=== PATIENT | male | born 2000 | race Caucasian/White ===

== ENCOUNTER 2025-09-04 04:12 | Inpatient (IN) | payer MEDICAID, SELFPAY ==
[2025-09-04] VITALS (20 sets, daily range): BP systolic 119–171; BP diastolic 68–101; PULSE 92–132; RESP 12–32; TEMP 36.4–37.7; O2SAT 96–100; BMI 22.4
--- NOTE | ~2025-09-04 | XR_ITS ---
Examination: XR chest 1V portable Clinical History: dyspnea Comparison: None Technique: Portable AP Findings: Heart size normal. Lungs clear. No acute bony abnormality. IMPRESSION: 1. No acute cardiopulmonary findings given portable technique. Reviewed, dictated and finalized at location R. MAKING MACHINE TENDER
[2025-09-04 04:43] LABS: Hematocrit 50.6 % (42.0-52.0); Hemoglobin 16.8 g/dL (14.0-18.0); Immature Granulocyte Percent A 5.0 % (0-0.5); Lymphocytes Absolute Auto 1.08 K/mm3 (0.9-3.2); Mean Corpuscular HGB Conc 33.2 g/dl (32-36); Mean Corpuscular Hemoglobin 32.1 pg (26-34); Mean Corpuscular Volume 96.6 fl (80-100); Nucleated Red Blood Cells Absolute Auto 0.000 K/mm3 (0.0-0.012); Nucleated Red Blood Cells Perc 0.0 % (0.0-0.2); Platelet Count Result 261 k/mm3 (150-375); Red Blood Count 5.24 M/mm3 (4.6-6.20); White Blood Count 18.5 K/mm3 (4.5-10.0)
[2025-09-04 05:01] LABS: Alanine Aminotransferase 42 U/L (6-50); Albumin Level 5.5 g/dL (3.5-5.1); Alkaline Phosphatase 107 U/L (38-126); Aspartate Amino Transferase 25 U/L (17-59); Bilirubin,Total 0.7 mg/dL (0.2-1.3); Blood Urea Nitrogen 6 mg/dL (9-20); Calcium 9.2 mg/dL (8.4-10.2); Carbon Dioxide < 5 mmol/L (22-30); Chloride 103 mmol/L (98-107); Estimated CRCL calculation 122 ml/min; Estimated Glomerular Filt Rate > 60; Glucose 366 mg/dL (65-110); Magnesium 1.9 mg/dL (1.6-2.3); Potassium 5.1 mmol/L (3.4-5.0); Sodium 136 mmol/L (137-145); Total Protein 9.1 g/dL (6.3-8.2)
--- NOTE | 2025-09-04 05:09 | ED.GENADULT ---
HPI - General Adult General Chief complaint: Unspecified Stated complaint: DKA Time Seen by Provider: 09/04/25 05:03 Source: patient and family Mode of arrival: ambulatory Limitations: no limitations History of Present Illness HPI narrative: Patient is a 25-year-old male presents to the emergency department accompanied by mother complaining of DKA. Patient has been in DKA multiple times in the past and feels occasion and can. Patient has a glucometer and his blood sugars have been in the 3-400s. Patient has had nausea and vomiting today. He has been short of breath. Patient notes he was seeing general production manager in the left and only takes for his insulin regimen is currently 40 units of long-acting and does not take any short-acting insulin. Patient went out drinking last night and thought maybe he was just tongue over the then realized that this is probably more DKA at this point. Patient denies any known fevers. Related Data Allergies Allergy/AdvReac Type Severity Reaction Status Date / Time black olives AdvReac Mild Diarrhea Uncoded 09/04/25 04:20 Review of Systems Review of Systems: A 10 system review of systems was completed on the patient and is negative except for what is stated in the HPI. Nursing and ancillary documentation was reviewed. Exam Narrative: CONST: Kussmaul breathing HENMT: Head is normocephalic and atraumatic. Dry mucous membranes. No posterior oropharynx erythema. EYES: No scleral icterus. No conjunctival injection or pallor. PERRL. NECK: No meningeal signs. RESP: Conversational dyspnea. Clear to auscultation bilaterally. Tachypneic. CARDIO: Tachycardic rate. Regular rhythm. 2+ DP and radial pulses bilaterally. GI: Nondistended. No tenderness to palpation. Soft. : No CVA tenderness to palpation. SKIN: No rashes or lesions noted on exposed skin. NEURO: Oriented x3. Moves all extremities. EXTREM/MSK/BACK: No pedal edema. PSYCH: Normal affect. Course Vital Signs Vital signs: Vital Signs Temperature 99.9 F H 09/04/25 04:16 Pulse Rate 132 H 09/04/25 04:16 Respiratory Rate 32 H 09/04/25 04:16 Blood Pressure 171/101 H 09/04/25 04:16 Pulse Oximetry 100 09/04/25 04:16 Temperature 99.9 F H 09/04/25 04:16 Pulse Rate 132 H 09/04/25 04:16 Respiratory Rate 32 H 09/04/25 04:16 Blood Pressure 171/101 H 09/04/25 04:16 Pulse Oximetry 100 09/04/25 04:16 [employer] Narrative Medical decision making narrative: Patient presents with the above complaint. Initial vitals are remarkable for tachycardia, tachypnea. Physical examination as noted above. Plan discussed: Laboratory analysis, EKG, chest x-ray, IV fluids, insulin drip, DKA protocol, continuous cardiac monitoring, continuous pulse oximetry. I spoke with the grassland conservationist on-call who will see the patient on consultation, agrees with plan of care. I spoke with the hospitalist on-call who has accepted the patient for admission. Differential Diagnosis Differential Diagnosis: DKA, electrolyte derangement, metabolic derangement, dehydration, sepsis. Lab Data [facility] Lab Attestation statement: I personally reviewed the patient's lab results. Lab results narrative: CBC reveals a white blood cell count 18.5, hemoglobin is 16.8. Coags are unremarkable. VBG reveals a pH of 7.004, pCO2 of 19.8, bicarb of 4.8. Hemoglobin A1c is 8.8. Lactic acid is 1.6. Phosphorus is 4.4. Magnesium is 1.9. Lipase is 59. Troponin is 0.015. CMP reveals a sodium 136, potassium 5.1, bicarb less than 5, glucose of 366. For total creatine kinase is 37. 09/04/25 04:32 09/04/25 05:55 Labs: Lab Results 09/04/25 09/04/25 09/04/25 Range/Units 04:30 04:32 05:14 WBC 18.5 H (4.5-10.0) K/mm3 RBC 5.24 (4.6-6.20) M/mm3 Hgb 16.8 (14.0-18.0) g/dL Hct 50.6 (42.0-52.0) % MCV 96.6 (80-100) fl MCH 32.1 (26-34) pg MCHC 33.2 (32-36) g/dl RDW 12.0 (11.5-14.5) % Plt Count 261 (150-375) k/mm3 MPV 9.5 (7.4-10.4) fl Immature Gran % (Auto) 5.0 H (0-0.5) % Neut % (Auto) 82.3 H (45.5-73.1) % Lymph % (Auto) 5.8 L (18.3-44.2) % Bertie % (Auto) 6.0 (2.6-8.5) % Eos % (Auto) 0.1 (0-4.4) % Baso % (Auto) 0.8 (0.2-1.2) % Lymph # (Auto) 1.08 (0.9-3.2) K/mm3 Bertie # (Auto) 1.1 H (0.1-0.6) K/mm3 Eos # (Auto) 0.0 (0-0.3) K/mm3 Baso # (Auto) 0.2 H (0.0-0.1) K/mm3 Abs Immat Gran (auto) 0.92 H (0.00-0.031) K/mm3 Absolute Neuts (auto) 15.2 H (1.3-6.7) K/mm3 Absolute Nucleated RBC 0.000 (0.0-0.012) K/mm3 Nucleated RBC % 0.0 (0.0-0.2) % PT 15.3 H (11.1-14.7) Seconds INR 1.2 APTT 30.8 (22.3-36.8) Seconds Sodium 136 L (137-145) mmol/L Potassium 5.1 H (3.4-5.0) mmol/L Chloride 103 (98-107) mmol/L Carbon Dioxide < 5 L (22-30) mmol/L Anion Gap (4-12) mmol/L BUN 6 L (9-20) mg/dL Creatinine 1.08 (0.7-1.3) mg/dL Estim Creat Clear Calc 122 ml/min Estimated GFR > 60 (59 - ) Glucose 366 H (65-110) mg/dL POC Capillary Glucose 350 H 394 H (65-105) mg/dl Hemoglobin A1c 8.8 H (<5.7) % Serum Osmolality Pending Lactic Acid (0.7-2.0) mmol/L Calcium 9.2 (8.4-10.2) mg/dL Phosphorus 4.4 (2.5-4.5) mg/dL Magnesium 1.9 (1.6-2.3) mg/dL Total Bilirubin 0.7 (0.2-1.3) mg/dL AST 25 (17-59) U/L ALT 42 (6-50) U/L Alkaline Phosphatase 107 (38-126) U/L Total Creatine Kinase 37 L (55-170) U/L Troponin I 0.015 (0.000-0.034) ng/mL Total Protein 9.1 H (6.3-8.2) g/dL Albumin 5.5 H (3.5-5.1) g/dL Lipase 59 (23-300) U/L Influenza A (RT-PCR) (Negative) Influenza B (RT-PCR) (Negative) RSV (RT-PCR) (Negative) SARS-CoV-2 RNA (RT-PCR) (Negative) 09/04/25 09/04/25 09/04/25 Range/Units 05:51 05:55 05:56 WBC (4.5-10.0) K/mm3 RBC (4.6-6.20) M/mm3 Hgb (14.0-18.0) g/dL Hct (42.0-52.0) % MCV (80-100) fl MCH (26-34) pg MCHC (32-36) g/dl RDW (11.5-14.5) % Plt Count (150-375) k/mm3 MPV (7.4-10.4) fl Immature Gran % (Auto) (0-0.5) % Neut % (Auto) (45.5-73.1) % Lymph % (Auto) (18.3-44.2) % Bertie % (Auto) (2.6-8.5) % Eos % (Auto) (0-4.4) % Baso % (Auto) (0.2-1.2) % Lymph # (Auto) (0.9-3.2) K/mm3 Bertie # (Auto) (0.1-0.6) K/mm3 Eos # (Auto) (0-0.3) K/mm3 Baso # (Auto) (0.0-0.1) K/mm3 Abs Immat Gran (auto) (0.00-0.031) K/mm3 Absolute Neuts (auto) (1.3-6.7) K/mm3 Absolute Nucleated RBC (0.0-0.012) K/mm3 Nucleated RBC % (0.0-0.2) % PT (11.1-14.7) Seconds INR APTT (22.3-36.8) Seconds Sodium 134 L (137-145) mmol/L Potassium 5.7 H (3.4-5.0) mmol/L Chloride 104 (98-107) mmol/L Carbon Dioxide < 5 L (22-30) mmol/L Anion Gap (4-12) mmol/L BUN 6 L (9-20) mg/dL Creatinine 0.96 (0.7-1.3) mg/dL Estim Creat Clear Calc 136 ml/min Estimated GFR > 60 (59 - ) Glucose 342 H (65-110) mg/dL POC Capillary Glucose 353 H (65-105) mg/dl Hemoglobin A1c (<5.7) % Serum Osmolality Cancelled Lactic Acid 1.6 (0.7-2.0) mmol/L Calcium 8.8 (8.4-10.2) mg/dL Phosphorus (2.5-4.5) mg/dL Magnesium (1.6-2.3) mg/dL Total Bilirubin (0.2-1.3) mg/dL AST (17-59) U/L ALT (6-50) U/L Alkaline Phosphatase (38-126) U/L Total Creatine Kinase (55-170) U/L Troponin I (0.000-0.034) ng/mL Total Protein (6.3-8.2) g/dL Albumin (3.5-5.1) g/dL Lipase (23-300) U/L Influenza A (RT-PCR) Negative (Negative) Influenza B (RT-PCR) Negative (Negative) RSV (RT-PCR) Negative (Negative) SARS-CoV-2 RNA (RT-PCR) Negative (Negative) 09/04/25 09/04/25 Range/Units 06:06 06:18 WBC (4.5-10.0) K/mm3 RBC (4.6-6.20) M/mm3 Hgb (14.0-18.0) g/dL Hct (42.0-52.0) % MCV (80-100) fl MCH (26-34) pg MCHC (32-36) g/dl RDW (11.5-14.5) % Plt Count (150-375) k/mm3 MPV (7.4-10.4) fl Immature Gran % (Auto) (0-0.5) % Neut % (Auto) (45.5-73.1) % Lymph % (Auto) (18.3-44.2) % Bertie % (Auto) (2.6-8.5) % Eos % (Auto) (0-4.4) % Baso % (Auto) (0.2-1.2) % Lymph # (Auto) (0.9-3.2) K/mm3 Bertie # (Auto) (0.1-0.6) K/mm3 Eos # (Auto) (0-0.3) K/mm3 Baso # (Auto) (0.0-0.1) K/mm3 Abs Immat Gran (auto) (0.00-0.031) K/mm3 Absolute Neuts (auto) (1.3-6.7) K/mm3 Absolute Nucleated RBC (0.0-0.012) K/mm3 Nucleated RBC % (0.0-0.2) % PT (11.1-14.7) Seconds INR APTT (22.3-36.8) Seconds Sodium (137-145) mmol/L Potassium (3.4-5.0) mmol/L Chloride (98-107) mmol/L Carbon Dioxide (22-30) mmol/L Anion Gap (4-12) mmol/L BUN (9-20) mg/dL Creatinine (0.7-1.3) mg/dL Estim Creat Clear Calc ml/min Estimated GFR (59 - ) Glucose (65-110) mg/dL POC Capillary Glucose 336 H 333 H (65-105) mg/dl Hemoglobin A1c (<5.7) % Serum Osmolality Lactic Acid (0.7-2.0) mmol/L Calcium (8.4-10.2) mg/dL Phosphorus (2.5-4.5) mg/dL Magnesium (1.6-2.3) mg/dL Total Bilirubin (0.2-1.3) mg/dL AST (17-59) U/L ALT (6-50) U/L Alkaline Phosphatase (38-126) U/L Total Creatine Kinase (55-170) U/L Troponin I (0.000-0.034) ng/mL Total Protein (6.3-8.2) g/dL Albumin (3.5-5.1) g/dL Lipase (23-300) U/L Influenza A (RT-PCR) (Negative) Influenza B (RT-PCR) (Negative) RSV (RT-PCR) (Negative) SARS-CoV-2 RNA (RT-PCR) (Negative) ABG Data ABG results: 09/04/25 05:56 VBG pH 7.004 L* VBG pCO2 19.8 L* VBG pO2 30.1 L VBG HCO3 4.8 L O2 Delivery Device Room air O2 Liters/Min Not Reportable FiO2 21 Imaging Data Radiologist's impression: ITS Impressions Chest X-Ray 09/04/25 06:38 IMPRESSION: 1. No acute cardiopulmonary findings given portable technique. Critical Care Time Critical Care Time Critical Care Time: Yes Indication: DKA Time Type: Intermittent Initial evaluation, discuss w/ involved parties, attempting to gather old records: 15 minutes Documenting medical record: 10 minutes Review of results (EKG's, labs, imaging): 10 minutes Serial repeat bedside evaluation: 10 minutes Discussing case with multiple memebers of the care team and consultants: 5 minutes Total Critical Care Time: 50 Discharge Plan Discharge Clinical Impression: Acute hyperkalemia, Acute dehydration DKA (diabetic ketoacidosis) Qualifiers: Diabetes mellitus type: due to underlying condition Diabetes mellitus complication detail: without coma Qualified Code(s): E08.10 - Diabetes mellitus due to underlying condition with ketoacidosis without coma Patient Disposition: Still a Patient Condition: Serious Time of Disposition: 06:21
[2025-09-04] MEDS: LACTATED RINGERS 1,000 ML 999 ML IV CONT ×3 (05:18→06:15)
[2025-09-04 05:33] LABS: Creatine Kinase 37 U/L (55-170); Lipase 59 U/L (23-300)
[2025-09-04 05:45] LABS: Troponin I 0.015 ng/mL (0.000-0.034)
[2025-09-04 06:05] LABS: Hemoglobin A1C 8.8 % (<5.7)
[2025-09-04 06:05] LABS: Fractional Inspired Oxygen 21 %; HCO3 VBG 4.8 mEq/l (24.0-30.0); PO2 VBG 30.1 mmHg (35.0-45.0)
[2025-09-04] MEDS: SODIUM CHLORIDE 0.9% IV 1,000 ML 150 ML IV CONT (06:09)
[2025-09-04 06:12] LABS: PCO2 VBG 19.8 mmHg (42.0-48.0); pH VBG 7.004 (7.300-7.400)
[2025-09-04] MEDS: INSULIN HUMAN REGULAR (*BKC) 100 UNITS in SODIUM CHLORIDE 0.9% IV 99 ML 11.1 UNITS IV CONT (06:13)
[2025-09-04 06:16] LABS: INR 1.2; Prothrombin Time 15.3 Seconds (11.1-14.7)
[2025-09-04 06:17] LABS: Partial Thromboplastin Time 30.8 Seconds (22.3-36.8)
[2025-09-04 06:26] LABS: Blood Urea Nitrogen 6 mg/dL (9-20); Calcium 8.8 mg/dL (8.4-10.2); Carbon Dioxide < 5 mmol/L (22-30); Chloride 104 mmol/L (98-107); Estimated CRCL calculation 136 ml/min; Estimated Glomerular Filt Rate > 60; Glucose 342 mg/dL (65-110); Potassium 5.7 mmol/L (3.4-5.0); Sodium 134 mmol/L (137-145)
[2025-09-04 06:43] LABS: Influenza A QL RT-PCR Negative (Negative); Influenza B QL RT-PCR Negative (Negative); RSV RNA, RT-PCR Negative (Negative); SARS-CoV-2 RNA PCR Negative (Negative)
--- NOTE | 2025-09-04 07:18 | WPCEDHO ---
ED Hand Off Checklist All vitals saved:yes IV Site documented:yes All med administrations documented:yes Triage Note Triage Note 25yo M to ER c/o DKA with high 09/04/25 04:16 blood sugar readings for days. +N /V today. Last insulin 60U Lantus ~3 hrs ago. Pt arrives tachycardic, tachypneic + kussmauls Allergies black olives Adverse Reaction (Mild, Uncoded 09/04/25 04:20) Diarrhea Active Medications including assessments/comments Sodium Chloride (Normal Saline Iv) 1,000 mls @ 150 mls/hr IV CONT .Q6H40M [facility] Last Admin: 09/04/25 06:09 Dose: 150 mls/hr Documented By: GEOFF Infusion/Titration Document 09/04/25 06:09 SRW (Rec: 09/04/25 06:10 SRW [id number]) Intake IV Site Peripheral Access Right Antecubital Container Volume 1,000 Waste Amount 0 Dosing Infusion Rate 150 Cumulative Dose Not Applicable Increase/Decrease Started Elapsed Time Elapsed Time ( 0m minutes) Insulin Human Regular 100 (units/ Sodium Chloride) 100 mls @ 11.1 mls/hr IV CONT .Q9H1M DOMONIQUE; Protocol Last Admin: 09/04/25 06:13 Dose: 11.1 units/hr, 11.1 mls/hr Documented By: GEOFF Co-signed By: LILIBETH Infusion/Titration Document 09/04/25 06:13 SRW (Rec: 09/04/25 06:15 SRW [id number]) Co-signed By Casandra Og RN Intake IV Site Peripheral Access Right Antecubital Container Volume 100 Waste Amount 0 Dosing Dose Rate 11.1 Infusion Rate 11.1 Increase/Decrease Started Elapsed Time Elapsed Time ( 0m minutes) MAR IV Insulin Pump Document 09/04/25 06:13 SRW (Rec: 09/04/25 06:15 SRW [id number]) Co-signed By Casandra Og RN MAR IV Insulin Pump Patient Has an No Insulin Pump MAR IV Insulin Document 09/04/25 06:13 SRW (Rec: 09/04/25 06:15 SRW [id number]) Co-signed By Casandra Og RN Reason for Administration IV Insulin Infusion DKA Protocol - Reason for Administration IV Insulin Action/Checks IV Insulin Action Initiated Administered/Completed Medications Discontinued Medications Lactated Ringer's (Lr - Lactated Ringers Iv) 1,000 mls @ 999 mls/hr IV CONT .Q1H1M STA Stop: 09/04/25 06:09 Last Infusion: 09/04/25 06:10 Dose: Infused Documented By: Admin: 09/04/25 05:36 Dose: 999 mls/hr Documented By: SRW Lactated Ringer's (Lr - Lactated Ringers Iv) 1,000 mls @ 999 mls/hr IV CONT .Q1H1M STA Stop: 09/04/25 06:11 Last Infusion: 09/04/25 06:42 Dose: Infused Documented By: Admin: 09/04/25 05:18 Dose: 999 mls/hr Documented By: W Lactated Ringer's (Lr - Lactated Ringers Iv) 1,000 mls @ 999 mls/hr IV CONT .Q1H1M STA Stop: 09/04/25 06:42 Last Admin: 09/04/25 06:15 Dose: 999 mls/hr Documented By: W Interventions/Assessments Cardiac Monitoring Start: 09/04/25 04:14 Freq: Status: Active Protocol: Document 09/04/25 04:57 SRW (Rec: 09/04/25 04:57 SRW [id number]) Business Management Intern Assessment Business Management Intern Yes Applied EKG Rythm Sinus Tachycardia General Assessment Start: 09/04/25 04:14 Freq: Status: Active Protocol: Document 09/04/25 06:48 SRW (Rec: 09/04/25 06:48 SRW [id number]) GA Neurological Assessment Neurological Yes Assessment WNL Level of Alert,Awake Consciousness Arousable to Verbal Orientation Oriented to Person,Oriented to Place,Oriented to Time IV / Saline Lock, Insert Start: 09/04/25 04:26 Freq: STAT Status: Active Protocol: Document 09/04/25 06:08 SRW (Rec: 09/04/25 06:09 SRW [id number]) IV Assessment Peripheral Access Left Wrist IV Catheter Access Initiated IV Insertion Date 09/04/25 IV Insertion Time 05:50 Catheter Gauge 20 IV Insertion 1 Attempts Ultrasound Used for No Placement IV Site Assessment WNL IV Care and WNL Maintenance Last Vital Signs Temperature 99.9 F H 09/04/25 04:16 Pulse Rate 132 H 09/04/25 04:16 Respiratory Rate 32 H 09/04/25 04:16 Pulse Oximetry 100 09/04/25 04:16 Blood Pressure 171/101 H 09/04/25 04:16 Blood Pressure Mean 124 09/04/25 04:16 Weight 111 kg 09/04/25 04:16 Last Result - Abnormals Only WBC 18.5 K/mm3 (4.5-10.0) H 09/04/25 04:32 Immature Gran % (Auto) 5.0 % (0-0.5) H 09/04/25 04:32 Neut % (Auto) 82.3 % (45.5-73.1) H 09/04/25 04:32 Lymph % (Auto) 5.8 % (18.3-44.2) L 09/04/25 04:32 [place] # (Auto) 1.1 K/mm3 (0.1-0.6) H 09/04/25 04:32 Baso # (Auto) 0.2 K/mm3 (0.0-0.1) H 09/04/25 04:32 Abs Immat Gran (auto) 0.92 K/mm3 (0.00-0.031) H 09/04/25 04:32 Absolute Neuts (auto) 15.2 K/mm3 (1.3-6.7) H 09/04/25 04:32 PT 15.3 Seconds (11.1-14.7) H 09/04/25 04:32 VBG pH 7.004 (7.300-7.400) L* 09/04/25 05:56 VBG pCO2 19.8 mmHg (42.0-48.0) L* 09/04/25 05:56 VBG pO2 30.1 mmHg (35.0-45.0) L 09/04/25 05:56 VBG HCO3 4.8 mEq/l (24.0-30.0) L 09/04/25 05:56 Sodium 134 mmol/L (137-145) L 09/04/25 05:55 Potassium 5.7 mmol/L (3.4-5.0) H 09/04/25 05:55 Carbon Dioxide < 5 mmol/L (22-30) L 09/04/25 05:55 BUN 6 mg/dL (9-20) L 09/04/25 05:55 Glucose 342 mg/dL (65-110) H 09/04/25 05:55 POC Capillary Glucose 292 mg/dl (65-105) H 09/04/25 07:04 Hemoglobin A1c 8.8 % (<5.7) H 09/04/25 04:32 Total Creatine Kinase 37 U/L (55-170) L 09/04/25 04:32 Total Protein 9.1 g/dL (6.3-8.2) H 09/04/25 04:32 Albumin 5.5 g/dL (3.5-5.1) H 09/04/25 04:32 Most Recent Suicide Severity Rating Suicide Severity Rating NO RISK INDICATED 09/04/25 04:16
[2025-09-04 07:22] LABS: Add Urine Microscopic? YES; Appearance Urine Clear (Clear); Glucose Urine UA 3+ mg/dL (Negative); Leukocyte Esterase Ur Negative LEU/UL (Negative); Nitrate Urine Negative (Negative); Non Pathogenic Casts 0-2; Specific Grav Ur 1.024 (1.001-1.035)
[2025-09-04 07:33] LABS: Cannabinoid Screen Urine Positive (Negative)
[2025-09-04 07:45] LABS: Procalcitonin 0.1 ng/mL
--- NOTE | 2025-09-04 07:56 | PC.NURSE ---
This patient, Nikolai Webb, was admitted to Intensive Care Unit-1. Patient/family oriented to hospital policies and general routines including ID bracelet, bed and alarms, visiting hours, pain management, procedures, bathroom and other care routines, personal items, smoking policy, room service/diet, and visiting hours. Information on how to activate the Rapid Response Team has been discussed. Patient/Family are encouraged to report perceived risks to care and to ask questions if they do not understand what they are told or what they should do.
[2025-09-04 08:16] LABS: Troponin I < 0.012 ng/mL (0.000-0.034)
[2025-09-04 08:26] LABS: MRSA (PCR) NOT DETECTED (NOT DETECTE)
[2025-09-04] MEDS: DEXTROSE 5%/0.45% SOD CHL 1,000 ML 150 ML IV CONT (08:38)
--- NOTE | 2025-09-04 08:44 | P.HP_ITS ---
H&P: HPI History of Present Illness Date/Time: 09/04/25 08:44 Chief Complaint: Nausea vomiting and back pain Narrative: 25-year-old gentleman has a long history of type [address] Ivette Giles for endocrinology but she retired. He has no PCP. He ran out of short-acting insulin several months ago and has been using only his long-acting insulin 40 units daily. He has a history of multiple episodes of DKA in the past. He does binge drink and socially smokes cigarettes and uses cannabis regularly. He does not intentionally use cocaine or other recreational drugs. On the night of September 02 he went out with friends and binge drink. On September 03 he thought he was home over but as the nausea vomiting worsened and his back began to hurt he realized he probably had DKA so he presented to the emergency room that evening. There his blood sugar was 366 with an anion gap metabolic acidosis consistent with DKA. His nausea vomiting have resolved with insulin and antiemetics however he still complains of lower back discomfort that is not positional. It does not radiate. It is moderate. Activity worsens it a little. It is across his lower back. Denied rash. Review of Systems Review of Systems: All systems reviewed & are unremarkable except as noted in HPI and below PMFSH Past Medical History Medical History (Updated 09/04/25 @ 09:04 by Ravi Limon MD) Alcohol abuse Cannabis abuse Type 1 diabetes Family History Family History (Updated 09/04/25 @ 09:02 by Ravi Limon MD) Father Diabetes mellitus Mother No problems noted. Social History Social History Smoking status: Current some day smoker Tobacco type: cigarettes Alcohol intake: current Drinks per week: 30 Substance use: current Substance use type: marijuana Lack of Transportation: No Lack of Food: Never True Current Housing: I Have Housing Concerned About Future Housing: No Difficulty Paying Gas/Electric Bills: No Difficulty Paying for Meds: No Currently Unemployed: No Education: High School Diploma/GED Difficulty w/ Childcare or Family Care: No Spiritual care concerns: No Meds Home Medications and Allergies Allergies Allergy/AdvReac Type Severity Reaction Status Date / Time black olives AdvReac Mild Diarrhea Uncoded 09/04/25 04:20 Vital Signs Vital Signs - 24 hr 09/04/25 04:16 09/04/25 07:42 09/04/25 08:00 Temperature 99.9 F H Pulse Rate 132 H Respiratory Rate 32 H Blood Pressure 171/101 H 153/92 H Pulse Oximetry 100 Oxygen Delivery Room Air 09/04/25 08:00 09/04/25 08:00 Temperature 98 F Pulse Rate 118 H 118 H Respiratory Rate 22 H Blood Pressure 140/90 Pulse Oximetry 100 Oxygen Delivery Exam Narrative: HEENT: PERRL, sclerae nonicteric, pharyngeal mucosa pink and intact NECK: No JVD, adenopathy, or thyromegaly CHEST: Clear to auscultation. Normal effort HEART: NL S1/S2, regular, no murmur ABDOMEN: BS+, soft, nontender, no mass, no bruits EXTREMITIES: No cyanosis, edema, or clubbing NEUROLOGIC: CN intact and symmetric to inspection MUSCULOSKELETAL: Tone and strength symmetric, LS spine nontender PSYCH: Alert. Oriented to person, place, and time Results Labs Labs: Short CBC 09/04/25 Range/Units 04:32 WBC 18.5 H (4.5-10.0) K/mm3 Hgb 16.8 (14.0-18.0) g/dL Hct 50.6 (42.0-52.0) % Plt Count 261 (150-375) k/mm3 [facility] 09/04/25 09/04/25 04:32 05:55 Sodium 136 L 134 L Potassium 5.1 H 5.7 H Chloride 103 104 Carbon Dioxide < 5 L < 5 L BUN 6 L 6 L Creatinine 1.08 0.96 Glucose 366 H 342 H Calcium 9.2 8.8 Cardiac Enzymes 09/04/25 09/04/25 Range/Units 04:32 07:47 Total Creatine Kinase 37 L (55-170) U/L Troponin I 0.015 < 0.012 D (0.000-0.034) ng/mL Liver Function 09/04/25 Range/Units 04:32 Total Bilirubin 0.7 (0.2-1.3) mg/dL AST 25 (17-59) U/L ALT 42 (6-50) U/L Alkaline Phosphatase 107 (38-126) U/L Albumin 5.5 H (3.5-5.1) g/dL Urine 12/07/25 Range/Units 07:06 Urine Color Yellow (Yellow) Urine Appearance Clear (Clear) Urine pH 5.0 (5.0-9.0) Ur Specific [place] 1.024 (1.001-1.035) Urine Protein 3+ H (Negative) mg/dL Urine Glucose (UA) 3+ H (Negative) mg/dL Assessment and Plan Assessment and plan (1) DKA (diabetic ketoacidosis): Qualifiers: Diabetes mellitus complication detail: without coma Diabetes mellitus type: due to underlying condition Qualified Code(s): E08.10 - Diabetes mellitus due to underlying condition with ketoacidosis without coma Code(s): E11.10 - Type 2 diabetes mellitus with ketoacidosis without coma Status: Acute Assessment and Plan: * Continue DKA protocol with IV insulin hydration follow-up labs * Will need to establish with PCP upon discharge (2) Acute hyperkalemia: Code(s): E87.5 - Hyperkalemia Status: Acute Assessment and Plan: * Related to metabolic acid will doses from DKA (3) Dorsalgia of lumbosacral region: Code(s): M54.50 - Low back pain, unspecified Status: Acute Assessment and Plan: * Likely related to DKA * Analgesics and increase activity as tolerated (4) Alcohol abuse: Code(s): F10.10 - Alcohol abuse, uncomplicated Status: Acute Assessment and Plan: * Discussed need for moderation (5) Cannabis abuse: Code(s): F12.10 - Cannabis abuse, uncomplicated Status: Acute Assessment and Plan: * Discussed need to obtain cannabis only directly from dispensary due to risk of and adulteration * Discussed need for moderation and use (6) Cigarette smoker: Code(s): F17.210 - Nicotine dependence, cigarettes, uncomplicated Status: Acute Assessment and Plan: * Discussed high risk of vascular complications due to his diabetes
--- NOTE | 2025-09-04 09:19 | P.CONIN_ITS ---
Assessment and Plan Assessment and plan (1) DKA (diabetic ketoacidosis): Qualifiers: Diabetes mellitus complication detail: without coma Diabetes mellitus type: due to underlying condition Qualified Code(s): E08.10 - Diabetes mellitus due to underlying condition with ketoacidosis without coma Code(s): E11.10 - Type 2 diabetes mellitus with ketoacidosis without coma Status: Acute Assessment and Plan: 09/04: Patient presented to the ED with complains of nausea, vomiting, not feeling too well, hyperglycemia. He has not been able to take a short-acting insulin for months because his treadle cut off saw operator Dr. Ivette elliott has retired. He only takes Lantus 40 units daily -on day of admission, patient was hyperglycemic in the ER with blood sugars in the 360s, CO2 <5, anion gap could not be calculated. UA was positive for urine ketones, glucose, blood -patient was given 3 L IV fluid bolus in the ER, I will given additional 1 L IV fluid bolus in the ICU as patient seems to be dehydrated/try -continue insulin infusion per DKA protocol and the fluids that go with it -once anion gap closes and CO2 improves will transition to long-acting insulin and sliding scale insulin -dietitian and senior health educator has been consulted -hemoglobin A1c is 8.8 this admission (2) Acute hyperkalemia: Code(s): E87.5 - Hyperkalemia Status: Acute Assessment and Plan: Acute hyperkalemia likely related to metabolic acidosis, hypovolemia/dehydration -will continue to monitor on serial BMPs (3) Alcohol abuse: Code(s): F10.10 - Alcohol abuse, uncomplicated Status: Acute Assessment and Plan: Will watch for alcohol withdrawal/DTs (4) Cannabis abuse: Code(s): F12.10 - Cannabis abuse, uncomplicated Status: Acute Assessment and Plan: Discussed cessation of smoking marijuana (5) Dorsalgia of lumbosacral region: Code(s): M54.50 - Low back pain, unspecified Status: Acute Assessment and Plan: Pain control, will increase activity once he is stable (6) Cigarette smoker: Code(s): F17.210 - Nicotine dependence, cigarettes, uncomplicated Status: Acute Assessment and Plan: Discuss cessation of smoking Plan DVT prophylaxis: Lovenox Stress ulcer prophylaxis: Not indicated Nutrition: Ice chips only Code Status: Full code Critical Care Time Spent: 44 minutes Discussed with patient and his mother was a retired ER nurse who used to work at [employer]. Updated both of them regarding patient's condition and plan of care. He has been through diabetic ketoacidosis in ICU admissions previously and recognizes and understands the treatment plan. Due to a high probability of clinically significant, life threatening deterioration, the patient required my highest level of preparedness to intervene emergently and I personally spent this critical care time directly and personally managing the patient. This critical care time included obtaining a history; examining the patient; pulse oximetry; ordering and review of studies; arranging urgent treatment with development of a management plan; evaluation of patient's response to treatment; frequent reassessment; and discussions with other providers. It was exclusive of separately billable procedures and treating other patients and teaching time. Please see Assessment and Plan section and the rest of the note for further information on patient assessment and treatment This dictation may have been done utilizing a voice recognition system. Attempts have been made to correct errors. However, there may be uncorrected grammatical, spelling, and recognitions errors present. English Drawer Consult Note Consult date: 09/04/25 Reason for consult: Diabetic ketoacidosis, nausea, vomiting, not feeling well, hyperglycemia HPI: Nikolai eWbb is a 25 year old male with significant past medical history of alcohol use disorder, cannabis abuse, diabetes type 1, history of diabetic ketoacidosis, has been no admitted in the ICU at other hospitals presented the ED on 09/04/2025 with complains of nausea, vomiting, not feeling well, hyperglycemia. Normally follows Dr. Ivette elliott for Endocrinology but she is retired. He ran out of his short-acting insulin several months ago and has been using only is long-acting insulin 40 units daily. He does binge drink and socially smoke and uses cannabis regularly. He does not intentionally use cocaine on the recreational drugs. Is started having nausea and vomiting on the morning of 09/03/2025, and his blood sugars were in the 300s to 400s, he fell and he probably had DKA and so presented to the ED early this morning on 09/04/2025. In the ER patient was tachycardic, tachypneic, blood sugars with 342, patient did take Lantus 60 units before coming to the hospital. Patient was given 3 L IV fluids in the ER. Started on insulin infusion per DKA protocol and transferred to the ICU for further management. Labs on admission showed a WBC count of 18.6, hemoglobin 16.8, platelets 261. Sodium 136, potassium 5.1, CO2 <5, unable to calculate anion gap. BUN 6, creatinine 1.08, blood sugar is 366, hemoglobin A1c 8.8, lactic acid 1.6, LFTs are within normal limits, procalcitonin was 0.1, troponin negative x2. UA was positive for protein, glucose, ketones and blood. Urine drug screen was positive for cocaine and cannabinoids. Influenza, RSV and SARS-CoV-2 PCR were negative Chest x-ray did not show any acute cardiopulmonary disease Patient seen and examined upon arrival to the ICU, is awake, alert, pleasant, able to answer questions appropriately. Denies any nausea vomiting at this time, complains of back pain which she attributes to the nausea and vomiting. Patient does smoke tobacco to 3 times a week, also binge drinks about 3 times a week. He smokes marijuana regularly but denies taking any cocaine or any other illicit drugs. He works as a kitchen porter in a restaurant. Denies any abdominal pain or chest pain at this time Review of Systems 2 Review of Systems: All systems reviewed & are unremarkable except as noted in HPI and below PMFSH Past Medical History Medical History (Updated 09/04/25 @ 09:04 by Ravi Limon MD) Alcohol abuse Cannabis abuse Type 1 diabetes Family History Family History (Updated 09/04/25 @ 09:02 by Ravi Limon MD) Father Diabetes mellitus Mother No problems noted. Social History Social History Smoking status: Current some day smoker Tobacco type: cigarettes Alcohol intake: current Drinks per week: 30 Substance use: current Substance use type: marijuana Lack of Transportation: No Lack of Food: Never True Current Housing: I Have Housing Concerned About Future Housing: No Difficulty Paying Gas/Electric Bills: No Difficulty Paying for Meds: No Currently Unemployed: No Education: High School Diploma/GED Difficulty w/ Childcare or Family Care: No Spiritual care concerns: No Meds Home Medications and Allergies Allergies Allergy/AdvReac Type Severity Reaction Status Date / Time black olives AdvReac Mild Diarrhea Uncoded 09/04/25 04:20 Vital Signs Vital Signs - 24 hr 09/04/25 04:16 09/04/25 07:42 09/04/25 08:00 Temperature 99.9 F H Pulse Rate 132 H Respiratory Rate 32 H Blood Pressure 171/101 H 153/92 H Pulse Oximetry 100 Oxygen Delivery Room Air 09/04/25 08:00 09/04/25 08:00 09/04/25 09:00 Temperature 98 F 98 F Pulse Rate 118 H 118 H 120 H Respiratory Rate 22 H 20 Blood Pressure 140/90 143/73 H Pulse Oximetry 100 100 Oxygen Delivery Exam 2 Narrative: General: Pleasant young gentleman in no acute distress HEENT:? Pupils equal and reactive, sclera is clear Neck:? Supple Respiratory:? Clear to auscultation bilaterally Cardiac:? Sinus tachycardia S1-S2 is normal Abdomen:? Soft, nontender, nondistended, normoactive bowel sound Extremities:? No edema, palpable pedal pulse Neuro:? Patient is awake, alert, oriented, nonfocal, answers to questions appropriately and follows simple commands in all extremities Skin:? Warm and dry, no lesions noted Psych:? Normal mentation and affect Results Labs 09/04/25 04:32 09/04/25 05:55 Labs: Short CBC 09/04/25 Range/Units 04:32 WBC 18.5 H (4.5-10.0) K/mm3 Hgb 16.8 (14.0-18.0) g/dL Hct 50.6 (42.0-52.0) % Plt Count 261 (150-375) k/mm3 [facility] 09/04/25 09/04/25 04:32 05:55 Sodium 136 L 134 L Potassium 5.1 H 5.7 H Chloride 103 104 Carbon Dioxide < 5 L < 5 L BUN 6 L 6 L Creatinine 1.08 0.96 Glucose 366 H 342 H Calcium 9.2 8.8 Cardiac Enzymes 09/04/25 09/04/25 Range/Units 04:32 07:47 Total Creatine Kinase 37 L (55-170) U/L Troponin I 0.015 < 0.012 D (0.000-0.034) ng/mL Liver Function 09/04/25 Range/Units 04:32 Total Bilirubin 0.7 (0.2-1.3) mg/dL AST 25 (17-59) U/L ALT 42 (6-50) U/L Alkaline Phosphatase 107 (38-126) U/L Albumin 5.5 H (3.5-5.1) g/dL Urine 09/04/25 Range/Units 07:06 Urine Color Yellow (Yellow) Urine Appearance Clear (Clear) Urine pH 5.0 (5.0-9.0) Ur Specific [place] 1.024 (1.001-1.035) Urine Protein 3+ H (Negative) mg/dL Urine Glucose (UA) 3+ H (Negative) mg/dL Quality VTE Prophylaxis VTE prophylaxis: pharmacologic ordered Hospitalist MIPS Advance Care Plan I have confirmed that the patient's Advanced Care Plan is present, code status is documented, or surrogate decision maker is listed in patient medical record.: Yes Medication Reconciliation I have utilized all available resources to obtain, update and review the patients current medications (includes all prescriptions, OTC, herbals, cannabis, and nutritional supplements).: Yes
[2025-09-04] MEDS: SODIUM CHLORIDE 0.9% IV 1,000 ML 999 ML IV CONT (09:30)
[2025-09-04 10:41] LABS: Thyroid Stimulating Hormone Reflex 0.874 uIU/mL (0.465-4.68)
[2025-09-04] MEDS: ENOXAPARIN 40 MG/0.4 ML SYRINGE SUB-Q (11:37)
[2025-09-04 13:24] LABS: Anion Gap 15 mmol/L (4-12); Blood Urea Nitrogen 4 mg/dL (9-20); Calcium 8.9 mg/dL (8.4-10.2); Carbon Dioxide 8 mmol/L (22-30); Chloride 110 mmol/L (98-107); Estimated CRCL calculation 163 ml/min; Estimated Glomerular Filt Rate > 60; Glucose 202 mg/dL (65-110); Potassium 4.1 mmol/L (3.4-5.0); Sodium 133 mmol/L (137-145)
[2025-09-04] MEDS: KCL 20 MEQ/D5/0.45% SOD CHL 1,000 ML 150 ML IV CONT ×2 (15:27→22:11)
[2025-09-04 17:53] LABS: Anion Gap 11 mmol/L (4-12); Blood Urea Nitrogen 3 mg/dL (9-20); Calcium 9.2 mg/dL (8.4-10.2); Carbon Dioxide 13 mmol/L (22-30); Chloride 110 mmol/L (98-107); Estimated CRCL calculation 173 ml/min; Estimated Glomerular Filt Rate > 60; Glucose 239 mg/dL (65-110); Potassium 4.1 mmol/L (3.4-5.0); Sodium 134 mmol/L (137-145)
[2025-09-04 21:14] LABS: Anion Gap 11 mmol/L (4-12); Blood Urea Nitrogen 3 mg/dL (9-20); Calcium 9.5 mg/dL (8.4-10.2); Carbon Dioxide 14 mmol/L (22-30); Chloride 108 mmol/L (98-107); Estimated CRCL calculation 173 ml/min; Estimated Glomerular Filt Rate > 60; Glucose 215 mg/dL (65-110); Potassium 3.8 mmol/L (3.4-5.0); Sodium 133 mmol/L (137-145)
[2025-09-05] VITALS (19 sets, daily range): BP systolic 119–138; BP diastolic 71–114; PULSE 83–120; RESP 13–99; TEMP 36.6–37.2; O2SAT 17–100; BMI 22.5
[2025-09-05 01:53] LABS: Anion Gap 9 mmol/L (4-12); Blood Urea Nitrogen 2 mg/dL (9-20); Calcium 9.7 mg/dL (8.4-10.2); Carbon Dioxide 19 mmol/L (22-30); Chloride 107 mmol/L (98-107); Estimated CRCL calculation 168 ml/min; Estimated Glomerular Filt Rate > 60; Glucose 223 mg/dL (65-110); Potassium 3.8 mmol/L (3.4-5.0); Sodium 135 mmol/L (137-145)
[2025-09-05] MEDS: KCL 20 MEQ/D5/0.45% SOD CHL 1,000 ML 150 ML IV CONT (04:50)
[2025-09-05 06:05] LABS: Hematocrit 38.1 % (42.0-52.0); Hemoglobin 13.5 g/dL (14.0-18.0); Immature Granulocyte Percent A 1.4 % (0-0.5); Lymphocytes Absolute Auto 1.02 K/mm3 (0.9-3.2); Mean Corpuscular HGB Conc 35.4 g/dl (32-36); Mean Corpuscular Hemoglobin 32.2 pg (26-34); Mean Corpuscular Volume 90.9 fl (80-100); Nucleated Red Blood Cells Absolute Auto 0.000 K/mm3 (0.0-0.012); Nucleated Red Blood Cells Perc 0.0 % (0.0-0.2); Platelet Count Result 172 k/mm3 (150-375); Red Blood Count 4.19 M/mm3 (4.6-6.20); White Blood Count 5.7 K/mm3 (4.5-10.0)
[2025-09-05 07:20] LABS: Alanine Aminotransferase 25 U/L (6-50); Albumin Level 3.7 g/dL (3.5-5.1); Alkaline Phosphatase 59 U/L (38-126); Anion Gap 9 mmol/L (4-12); Aspartate Amino Transferase 21 U/L (17-59); Bilirubin,Total 0.8 mg/dL (0.2-1.3); Blood Urea Nitrogen 3 mg/dL (9-20); Calcium 9.3 mg/dL (8.4-10.2); Carbon Dioxide 18 mmol/L (22-30); Chloride 107 mmol/L (98-107); Estimated CRCL calculation 178 ml/min; Estimated Glomerular Filt Rate > 60; Glucose 209 mg/dL (65-110); Magnesium 1.8 mg/dL (1.6-2.3); Potassium 3.4 mmol/L (3.4-5.0); Sodium 134 mmol/L (137-145); Total Protein 6.3 g/dL (6.3-8.2)
[2025-09-05] MEDS: INSULIN ASPART (*BKC) 100 UNITS/ML SUB-Q ×3 (08:36→17:17)
[2025-09-05] MEDS: INSULIN GLARGINE (*BKC) 100 UNITS/ML 40 UNITS SUB-Q (08:38)
[2025-09-05] MEDS: ENOXAPARIN 40 MG/0.4 ML SYRINGE SUB-Q (08:40)
[2025-09-05] MEDS: POTASSIUM CHLORIDE 20 MEQ ER TABLET 40 MEQ PO (08:53)
[2025-09-05] MEDS: POTASSIUM/PHOSPHORUS/SODIUM 1.5 GM PACKET 1 PACKET PO (08:54)
--- NOTE | 2025-09-05 14:22 | WPDINTPN2 ---
Assessment and Plan Assessment and Plan (1) DKA (diabetic ketoacidosis): Qualifiers: Diabetes mellitus complication detail: without coma Diabetes mellitus type: due to underlying condition Qualified Code(s): E08.10 - Diabetes mellitus due to underlying condition with ketoacidosis without coma Code(s): E11.10 - Type 2 diabetes mellitus with ketoacidosis without coma Status: Acute Assessment and Plan: 09/04: Patient presented to the ED with complains of nausea, vomiting, not feeling too well, hyperglycemia. He has not been able to take a short-acting insulin for months because his jig fitter Dr. Ivette elliott has retired. He only takes Lantus 40 units daily -on day of admission, patient was hyperglycemic in the ER with blood sugars in the 360s, CO2 <5, anion gap could not be calculated. UA was positive for urine ketones, glucose, blood -patient was given 3 L IV fluid bolus in the ER, I will given additional 1 L IV fluid bolus in the ICU as patient seems to be dehydrated/try - -dietitian and diabetes educator has been consulted -hemoglobin A1c is 8.8 this admission 09/05: anion gap was closed, CO2 has improved, will transition to long-acting insulin and sliding scale insulin. Diabetic diet (2) Acute hyperkalemia: Code(s): E87.5 - Hyperkalemia Status: Acute Assessment and Plan: Acute hyperkalemia likely related to metabolic acidosis, hypovolemia/dehydration -will continue to monitor on serial BMPs -09/05: hyperkalemia has resolved, patient this morning was hypokalemic, likely related to insulin infusion. Will replace potassium (3) Alcohol abuse: Code(s): F10.10 - Alcohol abuse, uncomplicated Status: Acute Assessment and Plan: Will watch for alcohol withdrawal/DTs (4) Cannabis abuse: Code(s): F12.10 - Cannabis abuse, uncomplicated Status: Acute Assessment and Plan: Discussed cessation of smoking marijuana (5) Dorsalgia of lumbosacral region: Code(s): M54.50 - Low back pain, unspecified Status: Acute Assessment and Plan: Pain control, will increase activity once he is stable (6) Cigarette smoker: Code(s): F17.210 - Nicotine dependence, cigarettes, uncomplicated Status: Acute Assessment and Plan: Discuss cessation of smoking Plan DVT prophylaxis: Lovenox Stress ulcer prophylaxis: Not indicated Nutrition: Ice chips only Code Status: Full code Critical Care Time Spent: 31 minutes patient may transfer out of the ICU Discussed with patient and his mother was a retired ER nurse who used to work at [employer]. Updated both of them regarding patient's condition and plan of care. He has been through diabetic ketoacidosis in ICU admissions previously and recognizes and understands the treatment plan. Due to a high probability of clinically significant, life threatening deterioration, the patient required my highest level of preparedness to intervene emergently and I personally spent this critical care time directly and personally managing the patient. This critical care time included obtaining a history; examining the patient; pulse oximetry; ordering and review of studies; arranging urgent treatment with development of a management plan; evaluation of patient's response to treatment; frequent reassessment; and discussions with other providers. It was exclusive of separately billable procedures and treating other patients and teaching time. Please see Assessment and Plan section and the rest of the note for further information on patient assessment and treatment This dictation may have been done utilizing a voice recognition system. Attempts have been made to correct errors. However, there may be uncorrected grammatical, spelling, and recognitions errors present. Subjective Date/time seen: 09/05/25 14:22 Interval history: Reason for consult: Diabetic ketoacidosis, nausea, vomiting, not feeling well, hyperglycemia 09/05/2025: Patient seen and examined the ICU, pleasant gentleman, in no acute distress. Denies any chest pain, shortness but common abdominal pain, nausea, vomiting. Hemodynamically stable, tachycardia has resolved, urine output has been adequate, afebrile Review of Systems Review of Systems: All systems reviewed & are unremarkable except as noted in HPI and below Exam Narrative: General: Pleasant young gentleman in no acute distress HEENT:? Pupils equal and reactive, sclera is clear Neck:? Supple Respiratory:? Clear to auscultation bilaterally Cardiac:? S1-S2 normal, regular rate and rhythm Abdomen:? Soft, nontender, nondistended, normoactive bowel sound Extremities:? No edema, palpable pedal pulse Neuro:? Patient is awake, alert, oriented, nonfocal, answers to questions appropriately and follows simple commands in all extremities Skin:? Warm and dry, no lesions noted Psych:? Normal mentation and affect Objective Data Vital Signs Vital Signs: Vital Signs - 24 hr 09/04/25 15:00 09/04/25 16:00 09/04/25 16:00 Temperature 98.3 F Pulse Rate 97 99 97 Respiratory Rate 14 18 Blood Pressure 125/69 Pulse Oximetry 99 100 Oxygen Delivery Room Air 09/04/25 16:00 09/04/25 17:00 09/04/25 18:00 Temperature 97.8 F 98 F Pulse Rate 97 92 96 Respiratory Rate 18 16 Blood Pressure 126/80 127/84 Pulse Oximetry 100 98 Oxygen Delivery 09/04/25 18:00 09/04/25 19:00 09/04/25 20:00 Temperature 98.2 F Pulse Rate 96 97 98 Respiratory Rate 16 18 14 Blood Pressure 128/82 125/74 132/75 Pulse Oximetry 98 98 98 Oxygen Delivery 09/04/25 20:00 09/04/25 20:30 09/04/25 21:00 Temperature Pulse Rate 107 H 98 106 H Respiratory Rate 14 15 Blood Pressure 129/69 Pulse Oximetry 98 99 Oxygen Delivery Room Air 09/04/25 22:00 09/04/25 22:00 09/04/25 22:00 Temperature 98.0 F Pulse Rate 105 H 104 H 104 H Respiratory Rate 13 12 Blood Pressure 119/72 119/72 Pulse Oximetry 99 99 Oxygen Delivery 09/04/25 23:00 09/04/25 23:51 09/05/25 00:00 Temperature Pulse Rate 99 94 92 Respiratory Rate 13 16 Blood Pressure 132/75 Pulse Oximetry 98 98 Oxygen Delivery Room Air 09/05/25 00:00 09/05/25 01:00 09/05/25 02:00 Temperature 98.1 F Pulse Rate 94 105 H 98 Respiratory Rate 17 20 99 H Blood Pressure 133/83 138/83 134/79 Pulse Oximetry 99 100 17 L Oxygen Delivery 09/05/25 02:00 09/05/25 03:00 09/05/25 03:57 Temperature Pulse Rate 91 87 120 H Respiratory Rate 16 26 H Blood Pressure 130/78 Pulse Oximetry 98 98 Oxygen Delivery Room Air 09/05/25 04:00 09/05/25 04:00 09/05/25 05:00 Temperature 98.3 F Pulse Rate 98 95 98 Respiratory Rate 14 16 Blood Pressure 131/78 127/71 Pulse Oximetry 99 98 Oxygen Delivery 09/05/25 06:00 09/05/25 06:00 09/05/25 07:00 Temperature Pulse Rate 98 98 102 H Respiratory Rate 15 17 Blood Pressure 129/72 126/72 Pulse Oximetry 98 96 Oxygen Delivery 09/05/25 08:00 09/05/25 08:00 09/05/25 09:00 Temperature 98.1 F Pulse Rate 89 100 Respiratory Rate 14 Blood Pressure 137/114 H Pulse Oximetry 97 99 Oxygen Delivery Room Air 09/05/25 10:00 09/05/25 10:00 09/05/25 11:00 Temperature 98.6 F 98.9 F Pulse Rate 100 91 93 Respiratory Rate 16 17 Blood Pressure 129/74 131/78 Pulse Oximetry 99 98 Oxygen Delivery 09/05/25 12:00 09/05/25 12:00 Temperature 98.5 F Pulse Rate 98 Respiratory Rate 16 Blood Pressure 125/83 Pulse Oximetry 98 Oxygen Delivery Room Air Intake/Output Intake/Output: Intake & Output 09/02/25 09/03/25 09/04/25 09/05/25 23:59 23:59 23:59 23:59 Intake Total 5495.9 1251.4 Output Total 1000 1100 Balance 4495.9 151.4 Meds/Results Medications: Active Medications Generic Name Dose Route Start Last Admin Trade Name Freq PRN Reason Stop Dose Admin Dextrose 12.5 gm 09/05/25 07:22 Dextrose 50% 25 Gm/50 Ml Syringe IV PUSH PRN PRN Hypoglycemia Protocol Enoxaparin Sodium 40 mg 09/05/25 09:00 09/05/25 08:40 Enoxaparin 40 Mg/0.4 Ml Syringe SUB-Q 40 mg DAILY DOMONIQUE Administration Glucagon 1 mg 09/05/25 07:22 Glucagon For Inj 1 Mg Vial IM PRN PRN Hypoglycemia Protocol Glucose 15 gm 09/05/25 07:22 Glucose Oral Gel 15 Gm Of Glucse In 37.5 Gm Tube PO PRN PRN Hypoglycemia Protocol Dextrose 1,000 mls @ 100 mls/hr 09/05/25 07:22 Dextrose 5% 1,000 Ml IVPB PRN PRN Hypoglycemia Protocol Insulin Aspart 2 - 4 units 09/05/25 21:00 Insulin Aspart (*Bkc) 100 Units/Ml SUB-Q HS DOMONIQUE Protocol Insulin Aspart 4 - 8 units 09/05/25 08:00 09/05/25 12:04 Insulin Aspart (*Bkc) 100 Units/Ml SUB-Q 4 units TIDWM DOMONIQUE Administration Protocol Insulin Glargine 40 units 09/05/25 09:00 09/05/25 08:38 Insulin Glargine (*Bkc) 100 Units/Ml SUB-Q 40 units DAILY DOMONIQUE Administration Miscellaneous Information 1 each 09/05/25 00:01 Please Add Drug Allergy Info To Patient Profile. XX 10/05/25 00:00 CLARIFY DOMONIQUE Radiology Results: ITS Impressions Chest X-Ray 09/04/25 06:38 IMPRESSION: 1. No acute cardiopulmonary findings given portable technique. Labs Labs: Laboratory Results - last 24 hr 09/04/25 09/04/25 09/04/25 14:32 15:35 16:41 WBC RBC Hgb Hct MCV MCH MCHC RDW Plt Count MPV Immature Gran % (Auto) Neut % (Auto) Lymph % (Auto) [place] % (Auto) Eos % (Auto) Baso % (Auto) Lymph # (Auto) [place] # (Auto) Eos # (Auto) Baso # (Auto) Abs Immat Gran (auto) Absolute Neuts (auto) Absolute Nucleated RBC Nucleated RBC % Sodium Potassium Chloride Carbon Dioxide Anion Gap BUN Creatinine Estim Creat Clear Calc Estimated GFR Glucose POC Capillary Glucose 208 H 243 H 279 H Calcium Phosphorus Magnesium Total Bilirubin AST ALT Alkaline Phosphatase Total Protein Albumin 09/04/25 09/04/25 09/04/25 17:24 17:30 18:34 WBC RBC Hgb Hct MCV MCH MCHC RDW Plt Count MPV Immature Gran % (Auto) Neut % (Auto) Lymph % (Auto) [place] % (Auto) Eos % (Auto) Baso % (Auto) Lymph # (Auto) [place] # (Auto) Eos # (Auto) Baso # (Auto) Abs Immat Gran (auto) Absolute Neuts (auto) Absolute Nucleated RBC Nucleated RBC % Sodium 134 L Potassium 4.1 Chloride 110 H Carbon Dioxide 13 L Anion Gap 11 BUN 3 L Creatinine 0.62 L Estim Creat Clear Calc 173 Estimated GFR > 60 Glucose 239 H POC Capillary Glucose 231 H 231 H Calcium 9.2 Phosphorus Magnesium Total Bilirubin AST ALT Alkaline Phosphatase Total Protein Albumin 09/04/25 09/04/25 09/04/25 20:07 21:00 21:02 WBC RBC Hgb Hct MCV MCH MCHC RDW Plt Count MPV Immature Gran % (Auto) Neut % (Auto) Lymph % (Auto) [place] % (Auto) Eos % (Auto) Baso % (Auto) Lymph # (Auto) [place] # (Auto) Eos # (Auto) Baso # (Auto) Abs Immat Gran (auto) Absolute Neuts (auto) Absolute Nucleated RBC Nucleated RBC % Sodium 133 L Potassium 3.8 Chloride 108 H Carbon Dioxide 14 L Anion Gap 11 BUN 3 L Creatinine 0.62 L Estim Creat Clear Calc 173 Estimated GFR > 60 Glucose 215 H POC Capillary Glucose 222 H 226 H Calcium 9.5 Phosphorus Magnesium Total Bilirubin AST ALT Alkaline Phosphatase Total Protein Albumin 09/04/25 09/04/25 09/05/25 22:01 23:03 00:23 WBC RBC Hgb Hct MCV MCH MCHC RDW Plt Count MPV Immature Gran % (Auto) Neut % (Auto) Lymph % (Auto) [place] % (Auto) Eos % (Auto) Baso % (Auto) Lymph # (Auto) [place] # (Auto) Eos # (Auto) Baso # (Auto) Abs Immat Gran (auto) Absolute Neuts (auto) Absolute Nucleated RBC Nucleated RBC % Sodium Potassium Chloride Carbon Dioxide Anion Gap BUN Creatinine Estim Creat Clear Calc Estimated GFR Glucose POC Capillary Glucose 231 H 220 H 220 H Calcium Phosphorus Magnesium Total Bilirubin AST ALT Alkaline Phosphatase Total Protein Albumin 09/05/25 09/05/25 09/05/25 01:12 01:15 01:58 WBC RBC Hgb Hct MCV MCH MCHC RDW Plt Count MPV Immature Gran % (Auto) Neut % (Auto) Lymph % (Auto) [place] % (Auto) Eos % (Auto) Baso % (Auto) Lymph # (Auto) [place] # (Auto) Eos # (Auto) Baso # (Auto) Abs Immat Gran (auto) Absolute Neuts (auto) Absolute Nucleated RBC Nucleated RBC % Sodium 135 L Potassium 3.8 Chloride 107 Carbon Dioxide 19 L Anion Gap 9 BUN 2 L Creatinine 0.64 L Estim Creat Clear Calc 168 Estimated GFR > 60 Glucose 223 H POC Capillary Glucose 208 H 238 H Calcium 9.7 Phosphorus Magnesium Total Bilirubin AST ALT Alkaline Phosphatase Total Protein Albumin 09/05/25 09/05/25 09/05/25 03:15 04:03 05:14 WBC RBC Hgb Hct MCV MCH MCHC RDW Plt Count MPV Immature Gran % (Auto) Neut % (Auto) Lymph % (Auto) [place] % (Auto) Eos % (Auto) Baso % (Auto) Lymph # (Auto) [place] # (Auto) Eos # (Auto) Baso # (Auto) Abs Immat Gran (auto) Absolute Neuts (auto) Absolute Nucleated RBC Nucleated RBC % Sodium Potassium Chloride Carbon Dioxide Anion Gap BUN Creatinine Estim Creat Clear Calc Estimated GFR Glucose POC Capillary Glucose 246 H 226 H 224 H Calcium Phosphorus Magnesium Total Bilirubin AST ALT Alkaline Phosphatase Total Protein Albumin 09/05/25 09/05/25 09/05/25 05:29 06:00 07:05 WBC 5.7 RBC 4.19 L Hgb 13.5 L D Hct 38.1 L MCV 90.9 D MCH 32.2 MCHC 35.4 RDW 12.2 Plt Count 172 MPV 9.4 Immature Gran % (Auto) 1.4 H Neut % (Auto) 71.6 Lymph % (Auto) 17.8 L [place] % (Auto) 8.2 Eos % (Auto) 0.7 Baso % (Auto) 0.3 Lymph # (Auto) 1.02 [place] # (Auto) 0.5 Eos # (Auto) 0.0 Baso # (Auto) 0.0 Abs Immat Gran (auto) 0.08 H Absolute Neuts (auto) 4.1 Absolute Nucleated RBC 0.000 Nucleated RBC % 0.0 Sodium 134 L Potassium 3.4 Chloride 107 Carbon Dioxide 18 L Anion Gap 9 BUN 3 L Creatinine 0.60 L Estim Creat Clear Calc 178 Estimated GFR > 60 Glucose 209 H POC Capillary Glucose 212 H 205 H Calcium 9.3 Phosphorus 1.2 L Magnesium 1.8 Total Bilirubin 0.8 AST 21 ALT 25 Alkaline Phosphatase 59 Total Protein 6.3 Albumin 3.7 09/05/25 09/05/25 09/05/25 08:34 09:03 10:03 WBC RBC Hgb Hct MCV MCH MCHC RDW Plt Count MPV Immature Gran % (Auto) Neut % (Auto) Lymph % (Auto) [place] % (Auto) Eos % (Auto) Baso % (Auto) Lymph # (Auto) [place] # (Auto) Eos # (Auto) Baso # (Auto) Abs Immat Gran (auto) Absolute Neuts (auto) Absolute Nucleated RBC Nucleated RBC % Sodium Potassium Chloride Carbon Dioxide Anion Gap BUN Creatinine Estim Creat Clear Calc Estimated GFR Glucose POC Capillary Glucose 217 H 205 H 256 H Calcium Phosphorus Magnesium Total Bilirubin AST ALT Alkaline Phosphatase Total Protein Albumin 09/05/25 09/05/25 09/05/25 11:01 11:32 14:00 WBC RBC Hgb Hct MCV MCH MCHC RDW Plt Count MPV Immature Gran % (Auto) Neut % (Auto) Lymph % (Auto) [place] % (Auto) Eos % (Auto) Baso % (Auto) Lymph # (Auto) [place] # (Auto) Eos # (Auto) Baso # (Auto) Abs Immat Gran (auto) Absolute Neuts (auto) Absolute Nucleated RBC Nucleated RBC % Sodium Potassium Chloride Carbon Dioxide Anion Gap BUN Creatinine Estim Creat Clear Calc Estimated GFR Glucose POC Capillary Glucose 249 H 227 H 209 H Calcium Phosphorus Magnesium Total Bilirubin AST ALT Alkaline Phosphatase Total Protein Albumin Quality VTE Prophylaxis VTE prophylaxis: pharmacologic ordered
[2025-09-06 06:00] VITALS: BP 142/87; PULSE 86; RESP 20; TEMP 36.7; O2SAT 98
[2025-09-06 06:12] LABS: Hematocrit 42.0 % (42.0-52.0); Hemoglobin 14.6 g/dL (14.0-18.0); Immature Granulocyte Percent A 0.8 % (0-0.5); Lymphocytes Absolute Auto 0.95 K/mm3 (0.9-3.2); Mean Corpuscular HGB Conc 34.8 g/dl (32-36); Mean Corpuscular Hemoglobin 31.9 pg (26-34); Mean Corpuscular Volume 91.7 fl (80-100); Nucleated Red Blood Cells Absolute Auto 0.000 K/mm3 (0.0-0.012); Nucleated Red Blood Cells Perc 0.0 % (0.0-0.2); Platelet Count Result 171 k/mm3 (150-375); Red Blood Count 4.58 M/mm3 (4.6-6.20); White Blood Count 4.8 K/mm3 (4.5-10.0)
[2025-09-06 06:54] LABS: Alanine Aminotransferase 41 U/L (6-50); Albumin Level 4.0 g/dL (3.5-5.1); Alkaline Phosphatase 72 U/L (38-126); Anion Gap 11 mmol/L (4-12); Aspartate Amino Transferase 43 U/L (17-59); Bilirubin,Total 0.8 mg/dL (0.2-1.3); Calcium 9.5 mg/dL (8.4-10.2); Carbon Dioxide 23 mmol/L (22-30); Chloride 101 mmol/L (98-107); Estimated CRCL calculation 193 ml/min; Estimated Glomerular Filt Rate > 60; Glucose 245 mg/dL (65-110); Magnesium 1.7 mg/dL (1.6-2.3); Potassium 3.0 mmol/L (3.4-5.0); Sodium 135 mmol/L (137-145); Total Protein 6.8 g/dL (6.3-8.2)
[2025-09-06 06:59] LABS: Blood Urea Nitrogen < 2 mg/dL (9-20)
[2025-09-06] MEDS: INSULIN ASPART (*BKC) 100 UNITS/ML SUB-Q ×2 (08:00→12:06)
[2025-09-06] MEDS: INSULIN GLARGINE (*BKC) 100 UNITS/ML 40 UNITS SUB-Q (08:00)
[2025-09-06] MEDS: ENOXAPARIN 40 MG/0.4 ML SYRINGE SUB-Q (08:02)
[2025-09-06] MEDS: POTASSIUM CHLORIDE 20 MEQ ER TABLET 40 MEQ PO (13:10)
--- NOTE | 2025-09-06 13:14 | P.DS_ITS ---
DS: Admitting Diagnosis Discharge Date 09/06/2025 Admitting Diagnosis Nausea vomiting and back pain DS: Discharge Diagnosis Discharge Diagnosis (1) DKA (diabetic ketoacidosis): Qualifiers: Diabetes mellitus complication detail: without coma Diabetes mellitus type: due to underlying condition Qualified Code(s): E08.10 - Diabetes mellitus due to underlying condition with ketoacidosis without coma Code(s): E11.10 - Type 2 diabetes mellitus with ketoacidosis without coma Status: Acute DS: Summary Hospital Course Hospital Course: Hospital Course History of Present Illness: 25-year-old male with a history of type 1 diabetes, multiple prior DKA episodes, alcohol and cannabis abuse, and no current PCP. He ran out of short-acting insulin months prior and was only taking insulin glargine 40 units daily. Presented after binge drinking with progressive nausea, vomiting, and back pain. On arrival, found to be hyperglycemic (glucose 366 mg/dL), with anion gap metabolic acidosis and positive urine ketones, consistent with DKA. Hospital Course: * DKA:?Managed per protocol with IV insulin and aggressive IV fluids. Anion gap closed and CO? improved by hospital day 2. Transitioned to subcutaneous insulin (glargine and aspart) and diabetic diet. * Electrolytes:?Initial hyperkalemia resolved with DKA treatment; subsequently developed hypokalemia, which was corrected. * Back Pain:?Attributed to DKA and vomiting; managed with analgesics. * Substance Use:?History of alcohol and cannabis abuse, current cigarette smoke r. Counseling provided regarding cessation and moderation. * Social:?Employed, has housing, no food insecurity, no difficulty affording medications. Complications: * None during this admission. Consultations: * Dietitian and rn diabetes consulted for diabetes management and education. Discharge Condition * Hemodynamically stable, afebrile, tolerating oral intake, back pain improved, no nausea or vomiting, alert and oriented. Discharge Medications * Insulin Glargine:?40 units subcutaneously daily * Insulin Aspart:?Sliding scale with meals and at bedtime (dosing per endocrinology/rn diabetes recommendations) * Potassium supplementation:?As needed, if hypokalemia recurs * Analgesics:?As needed for back pain Discharge Instructions * Diabetes:?Strict adherence to insulin regimen; do not miss doses. Monitor blood glucose at least 4 times daily. * Diet:?Follow diabetic diet as instructed by dietitian. * Sick Day Management:?If unable to eat, vomiting, or blood glucose >250 mg/dL, check for ketones and seek medical attention. * Substance Use:?Strongly advised to abstain from alcohol, cannabis, and tobacco. * Follow-up: * Establish care with a primary care provider and retort setter as soon as possible. * Follow up with rn diabetes/dietitian. * Return to ED for symptoms of DKA (nausea, vomiting, abdominal pain, confusion, rapid breathing), hypoglycemia, or any other concerning symptoms. Follow-up Appointments * [Insert scheduled appointments or instructions to schedule with PCP/endocrinology] Summary of Hospital Course Mr. Webb was admitted with DKA secondary to insulin omission and alcohol use. He was stabilized with IV insulin and fluids, transitioned to subcutaneous insulin, and received diabetes education. He was counseled on substance use and the importance of follow-up care. He is being discharged in stable condition with appropriate outpatient follow-up arranged. Time Spent with Patient Time attestation: Total time spent providing and/or coordinating discharge services: DS: Data Data Completed and Pending Labs on day of discharge: Labs from last 24 hours 09/06/25 09/06/25 09/06/25 11:07 07:28 05:59 WBC 4.8 RBC 4.58 L Hgb 14.6 Hct 42.0 MCV 91.7 MCH 31.9 MCHC 34.8 RDW 12.0 Plt Count 171 MPV 9.2 Immature Gran % (Auto) 0.8 H Neut % (Auto) 69.3 Lymph % (Auto) 19.7 [place] % (Auto) 7.9 Eos % (Auto) 1.7 Baso % (Auto) 0.6 Lymph # (Auto) 0.95 [place] # (Auto) 0.4 Eos # (Auto) 0.1 Baso # (Auto) 0.0 Abs Immat Gran (auto) 0.04 H Absolute Neuts (auto) 3.4 Absolute Nucleated RBC 0.000 Nucleated RBC % 0.0 Sodium 135 L Potassium 3.0 L Chloride 101 Carbon Dioxide 23 Anion Gap 11 BUN < 2 L Creatinine 0.55 L Estim Creat Clear Calc 193 Estimated GFR > 60 Glucose 245 H POC Capillary Glucose 216 H 257 H Calcium 9.5 Phosphorus 2.7 Magnesium 1.7 Total Bilirubin 0.8 AST 43 ALT 41 Alkaline Phosphatase 72 Total Protein 6.8 Albumin 4.0 09/05/25 09/05/25 09/05/25 20:52 16:18 15:24 WBC RBC Hgb Hct MCV MCH MCHC RDW Plt Count MPV Immature Gran % (Auto) Neut % (Auto) Lymph % (Auto) [place] % (Auto) Eos % (Auto) Baso % (Auto) Lymph # (Auto) [place] # (Auto) Eos # (Auto) Baso # (Auto) Abs Immat Gran (auto) Absolute Neuts (auto) Absolute Nucleated RBC Nucleated RBC % Sodium Potassium Chloride Carbon Dioxide Anion Gap BUN Creatinine Estim Creat Clear Calc Estimated GFR Glucose POC Capillary Glucose 233 H 203 H 215 H Calcium Phosphorus Magnesium Total Bilirubin AST ALT Alkaline Phosphatase Total Protein Albumin 09/05/25 14:00 WBC RBC Hgb Hct MCV MCH MCHC RDW Plt Count MPV Immature Gran % (Auto) Neut % (Auto) Lymph % (Auto) [place] % (Auto) Eos % (Auto) Baso % (Auto) Lymph # (Auto) [place] # (Auto) Eos # (Auto) Baso # (Auto) Abs Immat Gran (auto) Absolute Neuts (auto) Absolute Nucleated RBC Nucleated RBC % Sodium Potassium Chloride Carbon Dioxide Anion Gap BUN Creatinine Estim Creat Clear Calc Estimated GFR Glucose POC Capillary Glucose 209 H Calcium Phosphorus Magnesium Total Bilirubin AST ALT Alkaline Phosphatase Total Protein Albumin Preliminary micro results at discharge 09/04/25 05:56 Blood Culture - Preliminary Blood Discharge Plan Discharge Attending physician on discharge: Azra Little Consulting providers: Macrina Santos Onyema Discharging Clinician: Azra Little Anticipated Discharge Date/Time: 09/06/25 13:04 Patient Disposition: Home Activity: as tolerated Diet: as tolerated and diabetic Patient Language: Turkmen Stand Alone Forms: General Discharge Information Follow-up/Referrals: PHYSICIAN,GRADES 9 TH[employer] 12 TEACHER [Primary Care Provider, Internal Medicine] Referral Note: F/u with PCP in 3-5 days Discharge Medications: New Humalog KwikPen Insulin 200 unit/mL (3 mL) insulin pen 1 sliding scale dose subcut USEASDIRECTD Qty: 6 0RF Rx Instructions: Blood Glucose (mg/dL)Insulin Dose (Regular or Rapid-acting) < 150 0 units 151 ? 200 2 units 201 ? 250 4 units 251 ? 300 6 units 301 ? 350 8 units 351 ? 400 10 units > 400 12 units and notify provider insulin glargine [Lantus Solostar U-100 Insulin] 100 unit/mL (3 mL) insulin pen 40 unit subcut QPM Qty: 15 0RF No Action No Home Medications Date of admission: 09/04/25 09:04 Primary Care Provider: PHYSICIAN,GRADES 9 [employer] TEACHER Admitting Provider: Dina Sheehan Attending physician on admission: Dina Sheehan Condition: Serious
[2025-09-07 01:07] LABS: Osmolality, Serum 292 mOsmol/kg (275-295)
== END 2025-09-06 13:50 | disposition home or self-care (01) | DRG 420 ==
LOC: ANHED 05:48 → ANHICU 06:58 → ANH3MEDSUR 09-05 18:00
PROVIDERS: Internal Medicine; Admitting Provider General Practice; Emergency Provider Student in an Organized Health Care Education/Training Program; Visit Provider Internal Medicine
DX: E10.10 Type 1 diabetes mellitus with ketoacidosis without coma (principal); E87.5 Hyperkalemia; M54.50 Low back pain, unspecified; F10.10 Alcohol abuse, uncomplicated; F12.90 Cannabis use, unspecified, uncomplicated; Z20.822 Contact with and (suspected) exposure to COVID-19; Z79.4 Long term (current) use of insulin; Z72.0 Tobacco use
CPT/HCPCS: 36415; 71045; 80048; 80053; 80307; 81001; 82077; 82550; 82803; 82948; 83036; 83605; 83690; 83735; 83930; 84100; 84145; 84443; 84484; 85025; 85610; 85730; 87040; 87637; 87641; 96360; 96361; 99285; A9270; G0378; G0379; J1650; J1815; J3480; J7030; J7120